=== PATIENT | female | born 1950 | race African-American/Black ===

== ENCOUNTER 2016-11-02 22:38 | Observation (INO) | payer MEDICARE, BC, OTHER ==
--- NOTE | ~2016-11-02 | HP ---
History And Physical [place] [id number] [facility] [place]. [address] NAME: CARIN MARQUEZ : 48 STATUS : ADM Mal PAT#: [id number] AGE: 66 ADM/REG DATE : 11/02/16 MR#: [id number] REPORT SERV DATE: 11/03/16 DICTATED BY: RACHEL GILLIAM DATE: 11/03/16 REPORT STATUS : Draft TRANSCRIBED BY: MODL DATE: 11/03/16 DATE OF ADMISSION: 11/02/2016 REASON FOR ADMISSION: Painful wound area to fistula. HISTORY OF PRESENT ILLNESS: This is a very pleasant 66-year-old female patient, who dialyzes on a Monday, Monday, Monday schedule via a right upper extremity fistula. She presents to [facility] with the request of her primary care for a painful wound area near her right upper extremity fistula. She dialyzes on Monday, Monday, and Monday at [place] [address] [facility] and has maintained her usual dialysis per schedule. Vascular Services have evaluated the patient this morning and finds that there is no direct correlation with her fistula access in regard to the wound and find no need for surgical intervention. The patient, however, does show redness and swelling to the area and it is quite painful for her. She states that she has continued to use the area for hemodialysis. She is awake, alert, and oriented. Denies current chest pain. No shortness of breath. No nausea, vomiting, or diarrhea. PAST MEDICAL HISTORY: Positive for end-stage renal disease, on Monday, Monday, and Monday hemodialysis at [place] [address] as listed above, via right upper extremity fistula, ischemic cardiomyopathy with ejection fraction of 20% to 25%, coronary artery disease with remote PCI to LAD, history of ventricular tachycardia, status post AICD, anemia, diabetes mellitus type 2, currently diet controlled; remote CVA; thrombocytopenia; congestive heart failure. PAST SURGICAL HISTORY: Positive for AICD, hysterectomy, , and PCI. FAMILY HISTORY: Noncontributory and not reviewed during this consultation and admission. ALLERGIES: SHE LISTS ALLERGIES TO MULTIPLE MEDICATIONS INCLUDING SULFA, CONTRAST, MORPHINE, SCOPOLAMINE, AMBIEN, ZEMPLAR, AND LATEX. ACTIVE MEDICATIONS: Include Tylenol 1000 mg daily p.r.n. b.i.d., ASA 81 mg daily, Keflex 500 mg p.o. b.i.d. x3 days with recent completion, Klonopin 0.5 mg p.o. t.i.d. p.r.n., Flonase one spray daily p.r.n. in both nostrils, [place] 10/325 tab p.o. t.i.d. for pain, Imdur 60 mg p.o. at bedtime, Lopressor 37.5 mg p.o. t.i.d., Mexitil 150 mg p.o. t.i.d., Nitrostat 0.4 mg p.o. p.r.n. for chest pain, Protonix 40 mg p.o. daily, Renvela 800 mg p.o. with meals, Travatan one drop oph at bedtime. REVIEW OF SYSTEMS: Completed. Please see HPI for pertinent details. PHYSICAL EXAMINATION: VITAL SIGNS: Blood pressure at 120/72, temperature 98.2, respiratory rate at 18, heart rate at 80 beats per minute and regular, and 99% on room air. GENERAL: She is awake, alert, and oriented x3, in no acute distress. Denies current nausea, vomiting, or diarrhea. No chest pain. HEENT: Normocephalic, atraumatic. Normal ocular movements. No scleral icterus. No History And Physical [address] [address] NAME: CARIN MARQUEZ : 48 STATUS : ADM Mal PAT#: [id number] AGE: 66 ADM/REG DATE : 11/02/16 MR#: [id number] REPORT SERV DATE: 11/03/16 DICTATED BY: RACHEL GILLIAM DATE: 11/03/16 REPORT STATUS : Draft TRANSCRIBED BY: FRANCISCO DATE: 11/03/16 conjunctival pallor is appreciated. NECK: Without thyromegaly. No JVD or mass. CHEST: Shows positive S1 and S2. No rubs or gallops. LUNGS: Diminished, but clear to auscultation throughout. Normal expansion and effort bilaterally. GI: Shows positive bowel sounds in all four quadrants. No appreciable mass or tenderness. : Deferred. EXTREMITIES: Show positive pulses to all four extremities. She does have a right upper extremity fistula with a swollen area in her right arm, which is painful to the touch, with wound noted, which is covered by a Band-Aid. NEUROLOGIC: She appears to be grossly intact. Nonfocal. SKIN: Warm, dry, and intact to visualized surfaces. No rash, lesions, or ecchymosis with exception of wound noted in her right upper extremity as above. PSYCHIATRIC: She is of appropriate mood and affect. LABORATORY DATA: Pertinent labs and imaging to this evaluation, sodium 143, potassium 3.9, chloride 103, CO2 of 29, BUN 29, creatinine 5.27, reflected GFR 9 mL/minutes, glucose of 92, calcium 8.3, albumin 3.5, alkaline phos 144. ALT 35, AST 47, lipase 410. White blood cell count 4.8, RBC 3.54, hemoglobin 11.7, hematocrit 36.7, and platelets 71. IMPRESSION AND PLAN: End-stage renal disease, on Monday, Monday, and Monday dialysis at [address], now presenting to [facility] with complaint of ongoing pain in right upper extremity with wound and edema. Evaluated this morning by Dr. Juarez Baron with no indication according to his note with direct involvement to her access with no need for surgical intervention with re-evaluation planned in two weeks at his office. Plans for local wound care. We will ultrasound the right upper extremity with unilateral edema and pain noted. We will not initiate heparin drip at this time with noted depressed platelets, which is a chronic condition for this patient. Ask evaluation from Wound Care. Plan for hemodialysis in the morning. Further modification of treatment plan may be made based on the clinical presentation, patient lab results, and further consultation with renal attending. We appreciate Vascular Services for assistance in evaluation with this patient. DICTATED BY: Edmond Chacon NP JR/FRANCISCO Rachel Gilliam M.D. / [id number] CC: Don Chang M.D.
[2016-11-02 20:29] LABS: BASOPHILS 0.4 %; BASOPHILS ABSOLUTE 0.02 10/3/uL (0.0-0.16); EOSINOPHILS 2.1 %; HEMATOCRIT 36.7 % (36.0-48.0); HEMOGLOBIN 11.7 g/dL (12.0-16.0); IMMATURE GRANULOCYTES 0.2 %; IMMATURE GRANULOCYTES ABSOLUTE 0.01 10/3/uL (0.0-0.11); LYMPHOCYTES 23.3 %; LYMPHOCYTES ABSOLUTE 1.11 10/3/uL (0.67-4.30); MANUAL DIFF NO %; MEAN CORPUS HGB CONC 31.9 g/dL (32.0-36.0); MEAN CORPUSCULAR HEMOGLOB 33.1 pg (26.0-34.0); MEAN CORPUSCULAR VOLUME 103.7 fL (80-100); MEAN PLATELET VOLUME 13.2 fL (9.2-13.0); MONOCYTES 17.4 %; MONOCYTES ABSOLUTE 0.83 10/3/uL (0.21-1.20); NEUTROPHILS 56.6 %; NEUTROPHILS ABSOLUTE 2.69 10/3/uL (2.02-8.40); PLATELET COUNT 71 10/3/uL (150-400); RBC DISTRIBUTION WIDTH 15.4 % (12.0-16.0); RED CELL COUNT 3.54 10/6/uL (4.0-5.6); WHITE BLOOD CELLS 4.8 10/3/uL (4.5-10.5)
[2016-11-02 20:32] LABS: ER CBC TAT 0 Hrs 16 Mins
[2016-11-02 20:44] LABS: A/G RATIO 0.9 (0.7-1.9); ALBUMIN 3.5 G/DL (3.5-5.0); ALKALINE PHOSPHATASE 144 U/L (45-117); BUN (BLOOD UREA NITROGEN) 29 MG/DL (6-23); CALCIUM, SERUM 8.3 MG/DL (8.5-10.4); CHLORIDE, SERUM 103 MMOL/L (96-112); CO2 (CARBON DIOXIDE) 29 MMOL/L (24-34); CREATININE 5.27 MG/DL (0.55-1.02); GFR AFRICAN AMERICAN 9 ML/MIN (>=60); GFR NON AFRICAN AMERICAN 8 ML/MIN (>=60); GLOBULIN 3.7 G/DL (2.5-4.1); GLUCOSE, SERUM 92 MG/DL (60-99); POTASSIUM, SERUM 3.9 MMOL/L (3.5-5.3); SGOT(AST) 47 U/L (5-40); SGPT(ALT) 35 U/L (5-65); SODIUM, SERUM 143 MMOL/L (135-148); TOTAL BILIRUBIN 0.8 MG/DL (0-1.2); TOTAL PROTEIN 7.2 G/DL (6.0-8.5)
[2016-11-02 21:34] LABS: PLATELET ESTIMATE DEC (ADEQUATE)
[2016-11-02 21:35] LABS: HYPOCHROMIA 1+ (3-10/OIF) (0-2/OIF)
[2016-11-02 21:36] LABS: POLYCHROMASIA 1+ (2-5/OIF) (0-1/OIF); TARGET CELLS OCC (1-2/OIF) (0-1/OIF)
[~2016-11-02 22:38] MED LIST: ACET500CAP PO; ASAB PO; ASABAYER PO; ATV1 PO; CEFT5 PO; CIP5 PO; COQ-1010 MG PO; FLONASE NAS; IMDUR30 PO; IMDUR60 PO; IODOSORB GEL; ISOSORB DIN30 MG PO; K500 PO; KLONO5 PO; LOP100 PO; LOP25 PO; LOP50 PO; LORT7 PO; MEXILETINE150 MG OR; MEXILETINE150 MG PO; MEXITIL 150 MG150 MG PO; NEUR100 PO; NIACIN 500 PO; NIACOR500 MG PO; NITROQUICK0.4 MG SL; NITROSTAT0.4 MG PO; NITROSTAT0.4 MG SL; NORCO1 TAB PO; NORV5 PO; NTG150 SL; PACERONE200 MG PO; PERCOCET1 TA2 PO; PERCOCET1 TA4 PO; PHOSLO PO; PLAVIX PO; PRAVACHOL40 MG PO; PROTONIX PO; RENVELA800 MG PO; SENSIPAR30 M1 PO; TRAVATAN OPH; TRAVATAN Z 0.004% OPH; TRAVATAN Z0.004 % OPH; VOL-CARE; XALAT OPH
[2016-11-03 15:42] LABS: BASOPHILS 0.6 %; BASOPHILS ABSOLUTE 0.03 10/3/uL (0.0-0.16); EOSINOPHILS 1.8 %; EOSINOPHILS ABSOLUTE 0.09 10/3/uL (0.0-0.53); HEMOGLOBIN 12.5 g/dL (12.0-16.0); IMMATURE GRANULOCYTES 0.4 %; IMMATURE GRANULOCYTES ABSOLUTE 0.02 10/3/uL (0.0-0.11); LYMPHOCYTES 29.5 %; LYMPHOCYTES ABSOLUTE 1.44 10/3/uL (0.67-4.30); MEAN CORPUS HGB CONC 32.1 g/dL (32.0-36.0); MEAN CORPUSCULAR HEMOGLOB 33.6 pg (26.0-34.0); MEAN CORPUSCULAR VOLUME 104.8 fL (80-100); MONOCYTES 13.9 %; MONOCYTES ABSOLUTE 0.68 10/3/uL (0.21-1.20); NEUTROPHILS 53.8 %; NEUTROPHILS ABSOLUTE 2.62 10/3/uL (2.02-8.40); PLATELET COUNT 81 10/3/uL (150-400); RBC DISTRIBUTION WIDTH 15.5 % (12.0-16.0); RED CELL COUNT 3.72 10/6/uL (4.0-5.6); WHITE BLOOD CELLS 4.9 10/3/uL (4.5-10.5)
[2016-11-03 15:44] LABS: MANUAL DIFF NO %
[2016-11-03 15:59] LABS: ALBUMIN 3.5 G/DL (3.5-5.0); CALCIUM, SERUM 8.1 MG/DL (8.5-10.4); CHLORIDE, SERUM 103 MMOL/L (96-112); CO2 (CARBON DIOXIDE) 29 MMOL/L (24-34); GLUCOSE, SERUM 80 MG/DL (60-99); POTASSIUM, SERUM 4.3 MMOL/L (3.5-5.3); SODIUM, SERUM 144 MMOL/L (135-148)
[2016-11-03 16:01] LABS: BUN (BLOOD UREA NITROGEN) 43 MG/DL (6-23); CREATININE 6.57 MG/DL (0.55-1.02); GFR AFRICAN AMERICAN 7 ML/MIN (>=60); GFR NON AFRICAN AMERICAN 6 ML/MIN (>=60); PHOSPHORUS, SERUM 4.8 MG/DL (2.5-4.5)
[2016-11-03 16:07] LABS: MACROCYTES 1+ (5-10/OIF) (0-5/OIF); PLATELET ESTIMATE DEC (ADEQUATE); TEARDROP SHAPED RBCS OCC (0-2/OIF)
[2016-11-04 07:07] LABS: BASOPHILS 0.4 %; BASOPHILS ABSOLUTE 0.02 10/3/uL (0.0-0.16); HEMATOCRIT 35.1 % (36.0-48.0); HEMOGLOBIN 11.7 g/dL (12.0-16.0); IMMATURE GRANULOCYTES 0.4 %; IMMATURE GRANULOCYTES ABSOLUTE 0.02 10/3/uL (0.0-0.11); LYMPHOCYTES 33.2 %; LYMPHOCYTES ABSOLUTE 1.69 10/3/uL (0.67-4.30); MEAN CORPUS HGB CONC 33.3 g/dL (32.0-36.0); MEAN CORPUSCULAR HEMOGLOB 33.6 pg (26.0-34.0); MEAN CORPUSCULAR VOLUME 100.9 fL (80-100); MEAN PLATELET VOLUME 12.5 fL (9.2-13.0); MONOCYTES 10.6 %; MONOCYTES ABSOLUTE 0.54 10/3/uL (0.21-1.20); NEUTROPHILS 53.4 %; NEUTROPHILS ABSOLUTE 2.72 10/3/uL (2.02-8.40); PLATELET COUNT 78 10/3/uL (150-400); RBC DISTRIBUTION WIDTH 15.5 % (12.0-16.0); RED CELL COUNT 3.48 10/6/uL (4.0-5.6); WHITE BLOOD CELLS 5.1 10/3/uL (4.5-10.5)
[2016-11-04 07:08] LABS: MANUAL DIFF NO %
[2016-11-04 07:15] LABS: ALBUMIN 3.4 G/DL (3.5-5.0); BUN (BLOOD UREA NITROGEN) 53 MG/DL (6-23); CHLORIDE, SERUM 103 MMOL/L (96-112); CO2 (CARBON DIOXIDE) 23 MMOL/L (24-34); CREATININE 7.53 MG/DL (0.55-1.02); GFR AFRICAN AMERICAN 6 ML/MIN (>=60); GFR NON AFRICAN AMERICAN 5 ML/MIN (>=60); GLUCOSE, SERUM 97 MG/DL (60-99); POTASSIUM, SERUM 4.2 MMOL/L (3.5-5.3); SODIUM, SERUM 141 MMOL/L (135-148)
[2016-11-04 08:59] LABS: HEPATITIS B SURFACE ANTIGEN NON-REACTIVE (NON-REACT)
[2016-11-04 09:26] LABS: HEPATITIS C ANTIBODY NON-REACTIVE (NON-REACT)
[2016-11-04 09:27] LABS: HEPATITIS B CORE AB IGM NON-REACTIVE (NON-REAC)
[2016-11-04 09:28] LABS: HEP A ANTIBODY IGM NON-REACTIVE (NON-REACT); HIV COMBO NON-REACTIVE (NON REAC)
[2016-11-04] MEDS ORDERED: NORCO1 TAB PO (15:01)
[2017-03-31] MEDS ORDERED: LOP25 PO (18:56)
[2017-03-31] MEDS ORDERED: MEXITIL 150 MG150 MG PO (18:56)
[2017-03-31] MEDS ORDERED: KLONO5 PO (18:57)
[2017-03-31] MEDS ORDERED: ASAB PO (18:57)
[2017-03-31] MEDS ORDERED: KLONOPIN WAF0.25 MG PO (18:57)
[2017-03-31] MEDS ORDERED: PERCOCET 7.5/321 TAB PO (18:57)
[2017-03-31] MEDS ORDERED: KEPPRA250 PO (18:57)
[2017-03-31] MEDS ORDERED: AMIT10 PO (18:58)
[2017-03-31] MEDS ORDERED: ACET500CAP PO (18:58)
[2017-03-31] MEDS ORDERED: PROTONIX PO (18:58)
[2017-03-31] MEDS ORDERED: SEVE800T PO (18:59)
[2017-03-31] MEDS ORDERED: TRAVATAN Z 0.004% OPH (18:59)
[2017-04-01] MEDS ORDERED: NITROQUICK0.4 MG SL (11:33)
[2017-04-01] MEDS ORDERED: NORV5 PO (11:41)
[2017-04-01] MEDS ORDERED: PLAVIX PO (11:41)
[2017-04-01] MEDS ORDERED: IMDUR60 PO (11:48)
[2017-04-01] MEDS ORDERED: FLONASE NAS (11:49)
[2017-04-01] MEDS ORDERED: CLARIT10 PO (11:49)
[2017-04-01] MEDS ORDERED: NEPHRO PO (11:50)
[2017-04-01] MEDS ORDERED: PRAVACHOL40 MG PO (11:51)
== END 2016-11-04 20:03 | disposition home or self-care (01) ==
LOC: ER 22:38 → 1SO 22:54
PROVIDERS: Emergency Medicine; Registered Nurse
DX: E11.22 Type 2 diabetes mellitus with diabetic chronic kidney disease (principal); I13.2 Hypertensive heart and chronic kidney disease with heart failure and with stage 5 chronic kidney disease, or end stage renal disease; N18.6 End stage renal disease; I50.9 Heart failure, unspecified; Z99.2 Dependence on renal dialysis; D69.6 Thrombocytopenia, unspecified; I25.5 Ischemic cardiomyopathy; I25.10 Atherosclerotic heart disease of native coronary artery without angina pectoris; M19.90 Unspecified osteoarthritis, unspecified site; F41.9 Anxiety disorder, unspecified; Z90.710 Acquired absence of both cervix and uterus; Z88.2 Allergy status to sulfonamides; Z88.6 Allergy status to analgesic agent; Z88.8 Allergy status to other drugs, medicaments and biological substances; Z91.040 Latex allergy status; Z86.73 Personal history of transient ischemic attack (TIA), and cerebral infarction without residual deficits; Z98.49 Cataract extraction status, unspecified eye; Z87.442 Personal history of urinary calculi; Z98.890 Other specified postprocedural states
CPT/HCPCS: 80053; 80069; 80074; 81001; 82962; 83690; 83735; 85025; 87389; 93971; 99284; A9270-GY; G0257; G0378

== ENCOUNTER 2016-12-04 20:05 | Emergency (ER) | payer MEDICARE, BC, OTHER ==
[2016-12-04 18:37] LABS: INTERNATIONAL NORMAL RATI 1.6 UNITS (-); PARTIAL THROMBO TIME 32.5 SEC (22.5-37.2)
[2016-12-04 18:46] LABS: PROTIME (NOT ORD) 18.5 SEC (12.0-14.5)
[2016-12-04 18:47] LABS: BUN (BLOOD UREA NITROGEN) 55 MG/DL (6-23); CALCIUM, SERUM 8.7 MG/DL (8.5-10.4); CHLORIDE, SERUM 99 MMOL/L (96-112); CO2 (CARBON DIOXIDE) 26 MMOL/L (24-34); CREATININE 8.04 MG/DL (0.55-1.02); ER CBC TAT 0 Hrs 15 Mins; GFR AFRICAN AMERICAN 5 ML/MIN (>=60); GFR NON AFRICAN AMERICAN 5 ML/MIN (>=60); GLUCOSE, SERUM 98 MG/DL (60-99); HEMATOCRIT 36.8 % (36.0-48.0); HEMOGLOBIN 11.9 g/dL (12.0-16.0); MANUAL DIFF YES %; MEAN CORPUS HGB CONC 32.3 g/dL (32.0-36.0); MEAN CORPUSCULAR HEMOGLOB 32.6 pg (26.0-34.0); MEAN CORPUSCULAR VOLUME 100.8 fL (80-100); NUCLEATED RED BLOOD CELLS 1.1 /100WBC (0-0); PLATELET COUNT 88 10/3/uL (150-400); POTASSIUM, SERUM 5.7 MMOL/L (3.5-5.3); RBC DISTRIBUTION WIDTH 14.3 % (12.0-16.0); RED CELL COUNT 3.65 10/6/uL (4.0-5.6); SODIUM, SERUM 135 MMOL/L (135-148)
[2016-12-04 18:49] LABS: CHEST PAIN PROFILE TAT 0 Hrs 23 Mins; TROPONIN I 0.13 NG/ML (<0.05)
[2016-12-04 19:10] LABS: EOSINOPHILS 2 %; EOSINOPHILS ABSOLUTE (CALC) 0.14 10/3/uL (0.0-0.53); ER DIFF TAT 0 Hrs 44 Mins; LYMPHOCYTES 25 %; LYMPHOCYTES ABSOLUTE (CALC) 1.75 10/3/uL (0.67-4.30); MONOCYTES 7 %; MONOCYTES ABSOLUTE (CALC) 0.49 10/3/uL (0.21-1.20); NEUTROPHILS ABSOLUTE (CALC) 4.62 10/3/uL (2.02-8.40); SEGMENTED NEUTROPHIL (0) 66 %; TOTAL NUCLEATED CELLS 100
[2016-12-04 19:11] LABS: MACROCYTES 1+ (5-10/OIF) (0-5/OIF)
[2016-12-04 19:12] LABS: BURR CELLS 1+ (3-10/OIF) (0-2/OIF); POLYCHROMASIA 1+ (2-5/OIF) (0-1/OIF); TEARDROP SHAPED RBCS FEW (3-10/OIF)
[2016-12-04 19:13] LABS: GIANT PLATELET RARE; PLATELET ESTIMATE DEC (ADEQUATE)
[2017-03-31] MEDS ORDERED: MEXITIL 150 MG150 MG PO (18:56)
[2017-03-31] MEDS ORDERED: LOP25 PO (18:56)
[2017-03-31] MEDS ORDERED: KEPPRA250 PO (18:57)
[2017-03-31] MEDS ORDERED: KLONO5 PO (18:57)
[2017-03-31] MEDS ORDERED: PERCOCET 7.5/321 TAB PO (18:57)
[2017-03-31] MEDS ORDERED: ASAB PO (18:57)
[2017-03-31] MEDS ORDERED: KLONOPIN WAF0.25 MG PO (18:57)
[2017-03-31] MEDS ORDERED: PROTONIX PO (18:58)
[2017-03-31] MEDS ORDERED: AMIT10 PO (18:58)
[2017-03-31] MEDS ORDERED: ACET500CAP PO (18:58)
[2017-03-31] MEDS ORDERED: SEVE800T PO (18:59)
[2017-03-31] MEDS ORDERED: TRAVATAN Z 0.004% OPH (18:59)
[2017-04-01] MEDS ORDERED: NITROQUICK0.4 MG SL (11:33)
[2017-04-01] MEDS ORDERED: NORV5 PO (11:41)
[2017-04-01] MEDS ORDERED: PLAVIX PO (11:41)
[2017-04-01] MEDS ORDERED: IMDUR60 PO (11:48)
[2017-04-01] MEDS ORDERED: CLARIT10 PO (11:49)
[2017-04-01] MEDS ORDERED: FLONASE NAS (11:49)
[2017-04-01] MEDS ORDERED: NEPHRO PO (11:50)
[2017-04-01] MEDS ORDERED: PRAVACHOL40 MG PO (11:51)
== END 2016-12-04 21:14 | disposition home or self-care (01) ==
LOC: ER 20:05
PROVIDERS: Emergency Medicine
DX: R07.9 Chest pain, unspecified (principal); R06.02 Shortness of breath; E87.6 Hypokalemia; I50.9 Heart failure, unspecified; E11.22 Type 2 diabetes mellitus with diabetic chronic kidney disease; N18.9 Chronic kidney disease, unspecified; Z86.73 Personal history of transient ischemic attack (TIA), and cerebral infarction without residual deficits; Z95.5 Presence of coronary angioplasty implant and graft; Z91.041 Radiographic dye allergy status; Z88.2 Allergy status to sulfonamides; Z88.5 Allergy status to narcotic agent; Z88.1 Allergy status to other antibiotic agents; Z91.040 Latex allergy status; Z79.82 Long term (current) use of aspirin; Z79.899 Other long term (current) drug therapy
CPT/HCPCS: 71010; 80048; 83735; 84484; 85025; 85610; 85730; 99285; A9270-GY

== ENCOUNTER 2016-12-18 20:30 | Observation (INO) | payer MEDICARE, BC, OTHER ==
--- NOTE | ~2016-12-18 | HP ---
History And Physical [facility] [address] [place]. [address] NAME: CARIN MARQUEZ : 48 STATUS : ADM Mal PAT#: [id number] AGE: 66 ADM/REG DATE : 12/18/16 MR#: [id number] REPORT SERV DATE: 12/19/16 DICTATED BY: DATE: REPORT STATUS : Draft TRANSCRIBED BY: MODL DATE: 12/19/16 DATE OF ADMISSION: 12/18/2016 CHIEF COMPLAINT: Bleeding from right upper arm AV fistula. HISTORY OF PRESENT ILLNESS: Ms. Marquez is a 66-year-old black female with end-stage renal disease, dialyzes on [address] Monday, Monday, Monday. She presented to the emergency department yesterday evening late with bleeding from her AV fistula. She does not know the duration of bleeding, states she was asleep when it started, it had stopped before her arrival here to the emergency department. It is of note that, she was just here in October with issues regarding the fistula, had a painful area around it, she follows with Dr. Hall. No fevers, chills. No shortness of breath, chest pain, tightness, or pressure, or other symptoms. No issues with dialysis on Monday and no bleeding on Monday. PAST MEDICAL HISTORY: End-stage renal disease, ischemic cardiomyopathy with EF of 20% to 25%, coronary artery disease with a history of PCI. She has a history of ventricular tachycardia with AICD, anemia, diabetes type 2, history of CVA, thrombocytopenia, and congestive heart failure. SURGICAL HISTORY: Hysterectomy, , PCI, and AICD. FAMILY MEDICAL HISTORY: No end-stage renal disease. ALLERGIES: SULFA, CONTRAST, MORPHINE, SCOPOLAMINE, AMBIEN, ZEMPLAR, LATEX. SOCIAL HISTORY: No tobacco, alcohol, or illicit drug use. Lives with family. MEDICATIONS: Acetaminophen, aspirin, calcium carbonate, Klonopin, Renvela, eyedrops, Flonase, [place], Imdur, Keppra, Lopressor, mexiletine, nitroglycerin, and Protonix. REVIEW OF SYSTEMS: 12-point review of systems obtained and negative with the exception of that in HPI. PHYSICAL EXAMINATION: VITAL SIGNS: Temp 97.6, blood pressure 113/66, pulse 81, respiratory rate 12, O2 saturation is 99%. GENERAL: This is a pleasant, cooperative, black female. She is awake, alert, and oriented x3. No acute distress. Answers questions appropriately. HEENT: Normocephalic, atraumatic. Conjunctivae clear. Sclerae anicteric. Oral mucosa is moist. NECK: Supple. Carotids are brisk. Neck veins flat. No lymphadenopathy. RESPIRATIONS: Even and unlabored. Breath sounds clear to auscultation. HEART: Rate is regular. She has a 2/6 systolic ejection murmur. No rub or gallop. ABDOMEN: Obese, soft, nontender. Bowel sounds active. No masses. No hepatosplenomegaly. No bruits. No CVA tenderness. BACK: Within normal limits. History And Physical [address] [place]. [address] NAME: CARIN MARQUEZ : 48 STATUS : ADM Mal PAT#: [id number] AGE: 66 ADM/REG DATE : 12/18/16 MR#: [id number] REPORT SERV DATE: 12/19/16 DICTATED BY: DATE: REPORT STATUS : Draft TRANSCRIBED BY: MODL DATE: 12/19/16 EXTREMITIES: No edema, cyanosis, clubbing to the right upper arm AV fistula and there was no active bleeding. Dressing is dry and intact and right hand warm and positive radial pulse. NEURO: No focal deficits. Mood and affect, pleasant and appropriate. PERTINENT LABS AND X-RAYS: WBCs 5.6, H and H 10 and 33, platelets 85,000. Sodium 139, potassium 5.2, chloride 106, CO2 of 27, BUN of 62, creatinine of 7.2, calcium 8.8, magnesium 1.9. Phosphorus 1.7. Troponin 0.04. IMPRESSION: 1. Bleeding from AV fistula. 2. End-stage renal disease. 3. Hypertension. 4. Ischemic cardiomyopathy with EF of 20% to 25%. 5. Coronary artery disease, status post PCI, distant. 6. History of ventricular tachycardia with positive AICD. 7. Chronic thrombocytopenia. 8. Anemia. 9. History of congestive heart failure. PLAN: She is going to be admitted to observation, vascular surgery consult placed. Dr. Hall has already made plans for fistulogram today at 11 o'clock. We will plan for dialysis afterwards if she is stable, next likely we will discharge home. MARIA C/FRANCISCO LIGIA Parra / [id number] CC: Jose Elias Gregory M.D.
--- NOTE | ~2016-12-18 | OP ---
Record Of Operation [facility] [address] [place]. [address] NAME: CARIN MARQUEZ : 48 STATUS : ADM Mal PAT#: [id number] AGE: 66 ADM/REG DATE : 12/18/16 MR#: [id number] REPORT SERV DATE: 12/19/16 DICTATED BY: GREGOR HALL DATE: 12/19/16 REPORT STATUS : Draft TRANSCRIBED BY: MODL DATE: 12/19/16 DATE OF PROCEDURE: 12/19/2016 PREOPERATIVE DIAGNOSIS: Prolonged bleeding from right upper extremity arteriovenous fistula. POSTOPERATIVE DIAGNOSES: 1. Prolonged bleeding from right upper extremity arteriovenous fistula. 2. Arteriovenous fistula and central venous stenosis. PROCEDURES: 1. Right upper extremity fistulogram. 2. Percutaneous angioplasty of the arteriovenous fistula and the right innominate vein. SURGEON: Gregor Hall M.D. PET TRAINING INSTRUCTOR: None. ANESTHESIA: MAC plus local. INDICATIONS: The patient is a 66-year-old female who presented with prolonged bleeding from her fistula. I talked to her about the risks, benefits, and alternatives of a fistulogram with possible intervention. She agreed to proceed. DESCRIPTION OF PROCEDURE: After informed consent was obtained, the patient was taken to the operating room and placed in the supine position on the operating table. Monitored anesthesia was administered. The patient's right upper extremity was prepped and draped in the usual sterile fashion. An ultrasound-guided access was obtained of the AV fistula in an antegrade fashion. I obtained a fistulogram that demonstrated that there was an intervening segment of fistula with a graft present also. There were couple of areas of stenosis within the fistula/graft. There was a patent stent. There was a right innominate vein stenosis. I placed a 7-Angolan sheath and angioplastied the fistula and graft with a 7-mm balloon. There was some improvement, but some residual area of stenosis more centrally. I angioplastied the fistula and graft with a 12 mm balloon as well as the right innominate vein with a 12 mm balloon. Imaging obtained afterwards showed a great result. Thus, I withdrew my wire, catheter, and sheath and placed a stitch for hemostasis. The patient tolerated the procedure well without any intraprocedural complications noted. BIOSOLIDS MANAGEMENT TECHNICIAN/FRANCISCO Gregor Hall M.D. / [id number] Record Of Operation [place] [id number] [place] [address] NAME: CARIN MARQUEZ : 49 STATUS : ADM Mal PAT#: [id number] AGE: 66 ADM/REG DATE : 12/18/16 MR#: [id number] REPORT SERV DATE: 12/19/16 DICTATED BY: GREGOR HALL DATE: 12/19/16 REPORT STATUS : Draft TRANSCRIBED BY: FRACNISCO DATE: 12/19/16 CC: Jose Elias Gregory M.D.
--- NOTE | ~2016-12-18 | CN ---
Consultation Report [facility] [address] [place]. [address] NAME: CARIN MARQUEZ : 48 STATUS : DIS Mal PAT#: [id number] AGE: 66 ADM/REG DATE : 12/18/16 MR#: [id number] REPORT SERV DATE: 12/20/16 DICTATED BY: GREGOR HALL DATE: 12/20/16 REPORT STATUS : Draft TRANSCRIBED BY: FRANCISCO DATE: 12/20/16 CONSULTATION DATE OF CONSULTATION: 12/19/2016 REASON FOR CONSULTATION: Evaluation for poorly functioning left upper extremity AV fistula. BRIEF HISTORY: The patient is a 66-year-old female with past medical history significant for end-stage renal disease, ischemic cardiomyopathy, coronary artery disease, diabetes, stroke, thrombocytopenia, and congestive heart failure, who came to the hospital after sudden onset of bleeding two days after dialysis. Apparently, this occurred when she was sleeping and there was a copious amount of blood. By the time she showed up to the ER, the bleeding had stopped, but there was some question as to whether she had an erosion of her fistula also. Given these circumstances, she was admitted to the hospital under Dr. Gregory. I was consulted for evaluation and treatment. The patient denies any issues with high venous pressures or prolonged bleeding beforehand. She has not had any problems with edema or problems clearing her potassium. PAST MEDICAL HISTORY: As above. SURGICAL HISTORY: Includes hysterectomy, , multiple dialysis access procedures, coronary intervention, and AICD placement. FAMILY HISTORY: Noncontributory. ALLERGIES: NUMEROUS AND ARE DOCUMENTED ON THE CHART. I REVIEWED THEM AND IT TURNS OUT THAT SHE DOES NOT ACTUALLY HAVE A TRUE ALLERGIC REACTION TO CONTRAST. SOCIAL HISTORY: She denies any tobacco, alcohol, or drug use. MEDICATIONS: Her medications are documented on the chart and were reviewed. REVIEW OF SYSTEMS: A complete review of systems was performed and is negative with the exception of the aforementioned findings. PHYSICAL EXAMINATION: VITAL SIGNS: Documented on the chart and were reviewed. GENERAL: The patient is awake, alert, and oriented, in no apparent distress. HEAD AND NECK: Benign without any carotid bruits. HEART: Regular rate and rhythm. LUNGS: Clear. ABDOMEN: Soft, nontender, nondistended with a nonaneurysmal aorta. She has a normal complement of upper extremity pulses without any significant edema or ischemic ulcerations. Consultation Report [facility] [address] [facility] [address] NAME: CARIN MARQUEZ : 48 STATUS : DIS Mal PAT#: [id number] AGE: 66 ADM/REG DATE : 12/18/16 MR#: [id number] REPORT SERV DATE: 12/20/16 DICTATED BY: GREGOR HALL DATE: 12/20/16 REPORT STATUS : Draft TRANSCRIBED BY: MODElina DATE: 12/20/16 She does have some scarring overlying her fistula or graft. It looks like she has some pseudoaneurysms present. It feels like some of this region has a graft in place, but some of it feels like a fistula. She has no prolonged bleeding right now. It looks like it has stopped. NEUROLOGICAL: Nonfocal. MUSCULOSKELETAL: Reveals no flexion contractures. LABORATORY DATA: Her laboratory investigations are consistent with her renal failure. ASSESSMENT AND PLAN: Looks like this very ill lady has prolonged bleeding from her fistula/graft. I talked to her about the risks, benefits, and alternatives of a fistulogram with possible intervention. She seems agreeable. We are going to get this scheduled. FREDI/FRANCISCO Gregor Hall M.D. / [id number] CC: Jose Elias Gregory M.D.
[2016-12-18 18:52] LABS: BASOPHILS 0.4 %; BASOPHILS ABSOLUTE 0.02 10/3/uL (0.0-0.16); EOSINOPHILS 3.5 %; HEMATOCRIT 33.8 % (36.0-48.0); HEMOGLOBIN 10.7 g/dL (12.0-16.0); IMMATURE GRANULOCYTES 0.2 %; IMMATURE GRANULOCYTES ABSOLUTE 0.01 10/3/uL (0.0-0.11); LYMPHOCYTES 34.2 %; LYMPHOCYTES ABSOLUTE 1.93 10/3/uL (0.67-4.30); MEAN CORPUS HGB CONC 31.7 g/dL (32.0-36.0); MEAN CORPUSCULAR HEMOGLOB 33.4 pg (26.0-34.0); MEAN PLATELET VOLUME 12.6 fL (9.2-13.0); MONOCYTES 15.1 %; MONOCYTES ABSOLUTE 0.85 10/3/uL (0.21-1.20); NEUTROPHILS 46.6 %; NEUTROPHILS ABSOLUTE 2.63 10/3/uL (2.02-8.40); PLATELET COUNT 85 10/3/uL (150-400); RBC DISTRIBUTION WIDTH 15.1 % (12.0-16.0); WHITE BLOOD CELLS 5.6 10/3/uL (4.5-10.5)
[2016-12-18 18:54] LABS: MANUAL DIFF NO %; MEAN CORPUSCULAR VOLUME 105.6 fL (80-100)
[2016-12-18 19:00] LABS: INTERNATIONAL NORMAL RATI 1.2 UNITS (-); PARTIAL THROMBO TIME 29.2 SEC (22.5-37.2); PROTIME (NOT ORD) 14.8 SEC (12.0-14.5)
[2016-12-18 19:08] LABS: CALCIUM, SERUM 8.8 MG/DL (8.5-10.4); CHEST PAIN PROFILE TAT 0 Hrs 20 Mins; CHLORIDE, SERUM 106 MMOL/L (96-112); CO2 (CARBON DIOXIDE) 27 MMOL/L (24-34); POTASSIUM, SERUM 5.2 MMOL/L (3.5-5.3); SODIUM, SERUM 139 MMOL/L (135-148); TROPONIN I 0.04 NG/ML (<0.05)
[2016-12-18 19:09] LABS: BUN (BLOOD UREA NITROGEN) 62 MG/DL (6-23); CREATININE 7.26 MG/DL (0.55-1.02); GFR AFRICAN AMERICAN 6 ML/MIN (>=60); GFR NON AFRICAN AMERICAN 5 ML/MIN (>=60); GLUCOSE, SERUM 75 MG/DL (60-99)
[2016-12-18] MEDS ORDERED: KEPPRA500 PO (21:24)
[2016-12-18] MEDS ORDERED: KLONO5 PO ×2 (21:27)
[2016-12-18] MEDS ORDERED: TUMSROLL PO ×2 (21:27)
[2016-12-19 00:28] LABS: ALBUMIN 3.3 G/DL (3.5-5.0)
[2016-12-19 00:29] LABS: PHOSPHORUS, SERUM 1.7 MG/DL (2.5-4.5)
[2017-03-31] MEDS ORDERED: LOP25 PO (18:56)
[2017-03-31] MEDS ORDERED: MEXITIL 150 MG150 MG PO (18:56)
[2017-03-31] MEDS ORDERED: KLONOPIN WAF0.25 MG PO (18:57)
[2017-03-31] MEDS ORDERED: PERCOCET 7.5/321 TAB PO (18:57)
[2017-03-31] MEDS ORDERED: KEPPRA250 PO (18:57)
[2017-03-31] MEDS ORDERED: ASAB PO (18:57)
[2017-03-31] MEDS ORDERED: KLONO5 PO (18:57)
[2017-03-31] MEDS ORDERED: PROTONIX PO (18:58)
[2017-03-31] MEDS ORDERED: AMIT10 PO (18:58)
[2017-03-31] MEDS ORDERED: ACET500CAP PO (18:58)
[2017-03-31] MEDS ORDERED: SEVE800T PO (18:59)
[2017-03-31] MEDS ORDERED: TRAVATAN Z 0.004% OPH (18:59)
[2017-04-01] MEDS ORDERED: NITROQUICK0.4 MG SL (11:33)
[2017-04-01] MEDS ORDERED: NORV5 PO (11:41)
[2017-04-01] MEDS ORDERED: PLAVIX PO (11:41)
[2017-04-01] MEDS ORDERED: IMDUR60 PO (11:48)
[2017-04-01] MEDS ORDERED: FLONASE NAS (11:49)
[2017-04-01] MEDS ORDERED: CLARIT10 PO (11:49)
[2017-04-01] MEDS ORDERED: NEPHRO PO (11:50)
[2017-04-01] MEDS ORDERED: PRAVACHOL40 MG PO (11:51)
== END 2016-12-19 22:07 | disposition home or self-care (01) ==
LOC: ER 20:30 → CDU1 21:31 → CDU2 21:45
PROVIDERS: Emergency Medicine
PROC: 05733ZZ Dilation of Right Innominate Vein, Percutaneous Approach (ICD-10-PCS; principal; 2016-12-18)
DX: T82.838A Hemorrhage due to vascular prosthetic devices, implants and grafts, initial encounter (principal); I25.10 Atherosclerotic heart disease of native coronary artery without angina pectoris; D64.9 Anemia, unspecified; E11.22 Type 2 diabetes mellitus with diabetic chronic kidney disease; D69.6 Thrombocytopenia, unspecified; I50.9 Heart failure, unspecified; N18.6 End stage renal disease; I13.2 Hypertensive heart and chronic kidney disease with heart failure and with stage 5 chronic kidney disease, or end stage renal disease; Z86.73 Personal history of transient ischemic attack (TIA), and cerebral infarction without residual deficits; Z98.890 Other specified postprocedural states; Z90.710 Acquired absence of both cervix and uterus; Z88.5 Allergy status to narcotic agent; Z88.8 Allergy status to other drugs, medicaments and biological substances; Z88.2 Allergy status to sulfonamides; Z91.040 Latex allergy status; Z79.82 Long term (current) use of aspirin; Z79.899 Other long term (current) drug therapy; Z79.891 Long term (current) use of opiate analgesic
CPT/HCPCS: 36902; 80048; 80069; 83735; 84484; 85025; 85610; 85730; 99285; A9270-GY; C1725; C1769; C1894; G0257; G0378; J0690; J2250; J2370; J3010; Q9967

== ENCOUNTER 2016-12-28 09:43 | Emergency (ER) | payer MEDICARE, BC, OTHER ==
[~2016-12-28 09:43] MED LIST changes: +KEPPRA500 PO; +TUMSROLL PO
[2017-03-31] MEDS ORDERED: LOP25 PO (18:56)
[2017-03-31] MEDS ORDERED: MEXITIL 150 MG150 MG PO (18:56)
[2017-03-31] MEDS ORDERED: KEPPRA250 PO (18:57)
[2017-03-31] MEDS ORDERED: KLONO5 PO (18:57)
[2017-03-31] MEDS ORDERED: PERCOCET 7.5/321 TAB PO (18:57)
[2017-03-31] MEDS ORDERED: ASAB PO (18:57)
[2017-03-31] MEDS ORDERED: KLONOPIN WAF0.25 MG PO (18:57)
[2017-03-31] MEDS ORDERED: ACET500CAP PO (18:58)
[2017-03-31] MEDS ORDERED: AMIT10 PO (18:58)
[2017-03-31] MEDS ORDERED: PROTONIX PO (18:58)
[2017-03-31] MEDS ORDERED: SEVE800T PO (18:59)
[2017-03-31] MEDS ORDERED: TRAVATAN Z 0.004% OPH (18:59)
[2017-04-01] MEDS ORDERED: NITROQUICK0.4 MG SL (11:33)
[2017-04-01] MEDS ORDERED: NORV5 PO (11:41)
[2017-04-01] MEDS ORDERED: PLAVIX PO (11:41)
[2017-04-01] MEDS ORDERED: IMDUR60 PO (11:48)
[2017-04-01] MEDS ORDERED: CLARIT10 PO (11:49)
[2017-04-01] MEDS ORDERED: FLONASE NAS (11:49)
[2017-04-01] MEDS ORDERED: NEPHRO PO (11:50)
[2017-04-01] MEDS ORDERED: PRAVACHOL40 MG PO (11:51)
== END 2016-12-28 11:00 | disposition home or self-care (01) ==
LOC: ER 09:43
DX: T82.838A Hemorrhage due to vascular prosthetic devices, implants and grafts, initial encounter (principal); I50.9 Heart failure, unspecified; I25.2 Old myocardial infarction; E11.9 Type 2 diabetes mellitus without complications; D64.9 Anemia, unspecified; Z91.041 Radiographic dye allergy status; Z88.5 Allergy status to narcotic agent; Z88.1 Allergy status to other antibiotic agents; Z88.2 Allergy status to sulfonamides; Z88.8 Allergy status to other drugs, medicaments and biological substances; Z91.040 Latex allergy status; Z79.82 Long term (current) use of aspirin; Z79.899 Other long term (current) drug therapy; Z86.73 Personal history of transient ischemic attack (TIA), and cerebral infarction without residual deficits
CPT/HCPCS: 99283

== ENCOUNTER 2017-01-03 12:32 | Emergency (ER) | payer MEDICARE, BC, OTHER ==
[2017-03-31] MEDS ORDERED: MEXITIL 150 MG150 MG PO (18:56)
[2017-03-31] MEDS ORDERED: LOP25 PO (18:56)
[2017-03-31] MEDS ORDERED: KEPPRA250 PO (18:57)
[2017-03-31] MEDS ORDERED: KLONOPIN WAF0.25 MG PO (18:57)
[2017-03-31] MEDS ORDERED: PERCOCET 7.5/321 TAB PO (18:57)
[2017-03-31] MEDS ORDERED: KLONO5 PO (18:57)
[2017-03-31] MEDS ORDERED: ASAB PO (18:57)
[2017-03-31] MEDS ORDERED: ACET500CAP PO (18:58)
[2017-03-31] MEDS ORDERED: AMIT10 PO (18:58)
[2017-03-31] MEDS ORDERED: PROTONIX PO (18:58)
[2017-03-31] MEDS ORDERED: SEVE800T PO (18:59)
[2017-03-31] MEDS ORDERED: TRAVATAN Z 0.004% OPH (18:59)
[2017-04-01] MEDS ORDERED: NITROQUICK0.4 MG SL (11:33)
[2017-04-01] MEDS ORDERED: PLAVIX PO (11:41)
[2017-04-01] MEDS ORDERED: NORV5 PO (11:41)
[2017-04-01] MEDS ORDERED: IMDUR60 PO (11:48)
[2017-04-01] MEDS ORDERED: FLONASE NAS (11:49)
[2017-04-01] MEDS ORDERED: CLARIT10 PO (11:49)
[2017-04-01] MEDS ORDERED: NEPHRO PO (11:50)
[2017-04-01] MEDS ORDERED: PRAVACHOL40 MG PO (11:51)
== END 2017-01-03 14:17 | disposition home or self-care (01) ==
LOC: ER 12:32
DX: S09.90XA Unspecified injury of head, initial encounter (principal); S89.92XA Unspecified injury of left lower leg, initial encounter; S80.211A Abrasion, right knee, initial encounter; I50.9 Heart failure, unspecified; E11.9 Type 2 diabetes mellitus without complications; D64.9 Anemia, unspecified; Z86.73 Personal history of transient ischemic attack (TIA), and cerebral infarction without residual deficits; Z91.041 Radiographic dye allergy status; Z88.2 Allergy status to sulfonamides; Z88.5 Allergy status to narcotic agent; Z88.1 Allergy status to other antibiotic agents; Z91.040 Latex allergy status; Z79.82 Long term (current) use of aspirin; Z79.899 Other long term (current) drug therapy; W19.XXXA Unspecified fall, initial encounter
CPT/HCPCS: 70450; 73560-50; 99284

== ENCOUNTER 2017-01-22 05:09 | Observation (INO) | payer MEDICARE, BC, OTHER ==
--- NOTE | ~2017-01-22 | OP ---
Record Of Operation [facility] [address] [place]. [address] NAME: CARIN MARQUEZ : 48 STATUS : ADM Mal PAT#: [id number] AGE: 66 ADM/REG DATE : 01/22/17 MR#: [id number] REPORT SERV DATE: 01/23/17 DICTATED BY: GREGOR HALL DATE: 01/23/17 REPORT STATUS : Draft TRANSCRIBED BY: MODElina DATE: 01/23/17 DATE OF PROCEDURE: 01/23/2017 PREOPERATIVE DIAGNOSIS: Prolonged bleeding from right upper extremity arteriovenous fistula. POSTOPERATIVE DIAGNOSIS: Prolonged bleeding from right upper extremity arteriovenous fistula. PROCEDURE: 1. Right upper extremity fistulogram. 2. Percutaneous angioplasty of the right innominate vein using a 14 mm high-pressure balloon. RAD TECHNOLOGIST: None. ANESTHESIA: LMA. INDICATIONS: The patient is a 66-year-old female with a history of end-stage renal disease who is dialyzed via a left upper extremity arteriovenous fistula/graft. She recently had an angioplasty for prolonged bleeding and she returns with another episode of prolonged bleeding. Thus, she was consented for angiography with possible intervention. DESCRIPTION OF PROCEDURE: After informed consent was obtained, the patient was taken to the operating room and placed in the supine position on the operating table. An LMA was introduced and general anesthesia was administered. The patient's right upper extremity was prepped and draped in usual sterile fashion. Ultrasound-guided access was obtained of the right upper extremity AV graft in an antegrade fashion. I placed a micropuncture sheath and obtained an angiogram that demonstrated no stenosis of the graft, intervening segment of the fistula, stent, or central veins up until the right innominate vein. There, there was a stenosis present. It was about 50%. I placed a wire there and angioplastied it with a 14 mm balloon. Imaging obtained afterwards showed a great result. There was no other stenosis identified on multiple views. Thus, I withdrew my sheath and placed a stitch for hemostasis. The patient tolerated the procedure well without any intraprocedural complications noted. BELT BACK OPERATOR/FRANCISCO Gregor Hall M.D. / [id number] CC: Tate Hussein M.D.
--- NOTE | ~2017-01-22 | HP ---
History And Physical [facility] [address] [place]. [address] NAME: CARIN MARQUEZ : 48 STATUS : ADM Mal PAT#: [id number] AGE: 66 ADM/REG DATE : 01/22/17 MR#: [id number] REPORT SERV DATE: 01/22/17 DICTATED BY: DATE: REPORT STATUS : Draft TRANSCRIBED BY: MODL DATE: 01/22/17 DATE OF ADMISSION: 01/22/2017 CHIEF COMPLAINT: Bleeding from right AV fistula. HISTORY OF PRESENT ILLNESS: Ms. Marquez is a 66-year-old black female, who dialyzes on Monday, Monday[facility]. She has had multiple admissions for bleeding from AV fistula. I think this is the fifth. Her last fistulogram was in 12/19/2016. She states that she had a little bit of bleeding post dialysis on Monday that was stopped and then yesterday evening while in bed, she started bleeding again, noticed blood on the floor, therefore presented to the emergency department. No fevers, chills. No shortness of breath. No chest pain, tightness, or pressure. No drainage or ulcerations to the AV fistula. Hemoglobin is stable at 11.7. PAST MEDICAL HISTORY: End-stage renal disease, ischemic cardiomyopathy with EF of 25% to 25%, history of ventricular tachycardia with an AICD, type 2 diabetes, coronary artery disease, history of PCI, CVA, chronic thrombocytopenia, chronic systolic CHF. She has had hysterectomy, , and multiple fistulogram. SOCIAL HISTORY: She lives alone. No tobacco, alcohol, or illicit drug use. ALLERGIES: SULFA, CONTRAST, MORPHINE, SCOPOLAMINE, AMBIEN, ZEMPLAR. MEDICATIONS: At home, acetaminophen, aspirin, calcium carbonate, Klonopin, Flonase, hydrocodone, Imdur, Keppra, metoprolol, Mexitil, nitroglycerin, Protonix, Renvela, and Travatan. REVIEW OF SYSTEMS: 12-point review of systems obtained and negative with the exception that in HPI. PHYSICAL EXAMINATION: VITAL SIGNS: Temp 97.6, blood pressure 159/72, pulse 80, respiratory rate 17, O2 saturation is 100%. GENERAL: This is a pleasant, cooperative, black female. She is awake, alert, oriented, and in no acute distress. Answers questions appropriately. HEENT: Normocephalic, atraumatic. Conjunctivae clear. Sclerae anicteric. Pupils are equal and round. Oral mucosa is dry. NECK: Supple, thick. I did not see any neck vein distention. No lymphadenopathy. RESPIRATIONS: Even and unlabored. Breath sounds clear to auscultation. HEART: Rate is regular. No murmur, rub, or gallop. ABDOMEN: Obese, soft, nontender. Bowel sounds active. No masses or hepatosplenomegaly. No bruits. No CVA tenderness. BACK: Within normal limits. EXTREMITIES: To the right upper extremity, she has an AV fistula. To the upper arm, it has a few scabbed-over area, it has only Band-Aids holding without any bleeding noted. There are no signs of infection. No erythema. No fluctuation. No induration. No surrounding History And Physical [address] [address] NAME: CARIN MARQUEZ : 48 STATUS : ADM Mal PAT#: [id number] AGE: 66 ADM/REG DATE : 01/22/17 MR#: [id number] REPORT SERV DATE: 01/22/17 DICTATED BY: DATE: REPORT STATUS : Draft TRANSCRIBED BY: MODL DATE: 01/22/17 erythema. Lower extremities, no significant edema. SKIN: No unusual rash or skin lesions. NEURO: No focal deficits. Mood and affect, she is somewhat anxious, but appropriate. PERTINENT LABORATORIES AND X-RAYS: WBCs 5.2, H and H 11 and 36, platelets 86,000. IMPRESSION: 1. Bleeding from AV fistula to the right. 2. End-stage renal disease. 3. Ischemic cardiomyopathy. 4. Type 2 diabetes. 5. Coronary artery disease, status post PCI. 6. History of systolic heart failure. 7. Chronic thrombocytopenia. PLAN: Admit, vascular surgery consult has already been placed. Monitor for further bleeding. Dialysis tomorrow post fistulogram of that is warranted per Dr. Hall's recommendations. Further orders and recommendations pending clinical course. MARIA C/FRANCISCO LIGIA Parra / [id number] CC: Tate Hussein M.D.
--- NOTE | ~2017-01-22 | CN ---
Consultation Report [facility] [address] [place]. [address] NAME: CARIN MARQUEZ : 48 STATUS : ADM Mal PAT#: [id number] AGE: 66 ADM/REG DATE : 01/22/17 MR#: [id number] REPORT SERV DATE: 01/22/17 DICTATED BY: GREGOR HALL DATE: 01/22/17 REPORT STATUS : Draft TRANSCRIBED BY: MODElina DATE: 01/22/17 DATE OF CONSULTATION: 01/22/2017 REASON FOR CONSULTATION: Evaluation for prolonged bleeding from a right upper extremity AV graft. BRIEF HISTORY: The patient is a 66-year-old female with a past medical history significant for end-stage renal disease, ischemic cardiomyopathy, coronary artery disease, diabetes, stroke, thrombocytopenia, and congestive heart failure, who came to the hospital with her fourth episode of bleeding from her right upper extremity. I performed a fistulogram just over a month ago and intervened on several areas of stenosis within the fistula as well as a central lesion. Her bleeding improved, but she has now showed up with recurrent bleeding. She denies any aggravating or alleviating factors. PAST MEDICAL HISTORY: As above. PAST SURGICAL HISTORY: Hysterectomy, , multiple dialysis access procedures, coronary intervention, and AICD placement. FAMILY HISTORY: Noncontributory. ALLERGIES: NUMEROUS AND ARE DOCUMENTED ON THE CHART. SHE HAS A LISTED ALLERGIC REACTION TO CONTRAST BUT IT TURNS OUT THAT SHE DOES NOT ACTUALLY HAVE A TRUE ALLERGY. SOCIAL HISTORY: She denies tobacco, alcohol, or drug use. MEDICATIONS: Documented on the chart and were reviewed. REVIEW OF SYSTEMS: A complete review of systems was performed and is negative with the exception of the aforementioned findings. PHYSICAL EXAMINATION: VITAL SIGNS: Documented on the chart and were reviewed. GENERAL: The patient is awake, alert, and oriented, in no apparent distress. HEAD AND NECK: Benign without any carotid bruits. HEART: Regular rate and rhythm. LUNGS: Clear. ABDOMEN: Soft, nontender, nondistended with a nonaneurysmal aorta. She has a normal complement of upper extremity pulses without any significant edema or ischemic ulcerations. Her fistula/graft has a good thrill within it. NEUROLOGICAL: Her neurological examination is nonfocal. MUSCULOSKELETAL: Her musculoskeletal examination is otherwise benign. ASSESSMENT AND PLAN: It looks like this lady has recurrent prolonged bleeding from her right Consultation Report [facility] [address] [place]. [id number] NAME: CARIN MARQUEZ : 48 STATUS : ADM Mal PAT#: [id number] AGE: 66 ADM/REG DATE : 01/22/17 MR#: [id number] REPORT SERV DATE: 01/22/17 DICTATED BY: GREGOR HALL DATE: 01/22/17 REPORT STATUS : Draft TRANSCRIBED BY: MODL DATE: 01/22/17 upper extremity AV fistula/graft. I am going to plan on a fistulogram with possible intervention. Risks, benefits, and alternatives were discussed. She agrees to proceed. I will get this scheduled for tomorrow. FREDI/FRANCISCO Gregor Hall M.D. / [id number] CC: Tate Hussein M.D.
[2017-01-22 01:56] LABS: BASOPHILS 0.2 %; BASOPHILS ABSOLUTE 0.01 10/3/uL (0.0-0.16); EOSINOPHILS 3.3 %; EOSINOPHILS ABSOLUTE 0.17 10/3/uL (0.0-0.53); HEMATOCRIT 36.2 % (36.0-48.0); HEMOGLOBIN 11.7 g/dL (12.0-16.0); IMMATURE GRANULOCYTES 0.2 %; LYMPHOCYTES 35.9 %; LYMPHOCYTES ABSOLUTE 1.85 10/3/uL (0.67-4.30); MEAN CORPUS HGB CONC 32.3 g/dL (32.0-36.0); MEAN CORPUSCULAR HEMOGLOB 33.1 pg (26.0-34.0); MEAN CORPUSCULAR VOLUME 102.3 fL (80-100); MEAN PLATELET VOLUME 12.4 fL (9.2-13.0); MONOCYTES 21.3 %; NEUTROPHILS 39.1 %; NEUTROPHILS ABSOLUTE 2.02 10/3/uL (2.02-8.40); PLATELET COUNT 86 10/3/uL (150-400); RBC DISTRIBUTION WIDTH 13.5 % (12.0-16.0); RED CELL COUNT 3.54 10/6/uL (4.0-5.6); WHITE BLOOD CELLS 5.2 10/3/uL (4.5-10.5)
[2017-01-22 01:57] LABS: IMMATURE GRANULOCYTES ABSOLUTE 0.01 10/3/uL (0.0-0.11); MANUAL DIFF NO %
[2017-01-22 02:06] LABS: INTERNATIONAL NORMAL RATI 1.2 UNITS (-); PROTIME (NOT ORD) 14.8 SEC (12.0-14.5)
[2017-01-22 02:33] LABS: EOSINOPHILS 6 %; EOSINOPHILS ABSOLUTE (CALC) 0.31 10/3/uL (0.0-0.53); ER DIFF TAT 0 Hrs 41 Mins; LYMPHOCYTES 35 %; LYMPHOCYTES ABSOLUTE (CALC) 1.82 10/3/uL (0.67-4.30); METAMYELOCYTES 2 %; MONOCYTES 15 %; MONOCYTES ABSOLUTE (CALC) 0.78 10/3/uL (0.21-1.20); NEUTROPHILS ABSOLUTE (CALC) 2.18 10/3/uL (2.02-8.40); SEGMENTED NEUTROPHIL (0) 42 %; TOTAL NUCLEATED CELLS 100
[2017-01-22 02:34] LABS: PLATELET ESTIMATE DEC (ADEQUATE); RBC MORPHOLOGY NORM (NORMAL)
[2017-01-22] MEDS ORDERED: ACET500CAP PO (07:14)
[2017-01-22] MEDS ORDERED: ASAB PO (07:14)
[2017-01-22] MEDS ORDERED: TUMSROLL PO ×2 (07:15)
[2017-01-22] MEDS ORDERED: KLONO5 PO (07:16)
[2017-01-22] MEDS ORDERED: FLONASE NAS (07:17)
[2017-01-22] MEDS ORDERED: NORCO1 TAB PO (07:17)
[2017-01-22] MEDS ORDERED: KLONOPIN WAF0.25 MG PO (07:17)
[2017-01-22] MEDS ORDERED: IMDUR60 PO (07:18)
[2017-01-22] MEDS ORDERED: LOP25 PO (07:19)
[2017-01-22] MEDS ORDERED: KEPPRA500 PO (07:19)
[2017-01-22] MEDS ORDERED: NITROSTAT0.4 MG SL (07:20)
[2017-01-22] MEDS ORDERED: PROTONIX PO (07:20)
[2017-01-22] MEDS ORDERED: MEXITIL 150 MG150 MG PO (07:20)
[2017-01-22] MEDS ORDERED: RENVELA800 MG PO (07:21)
[2017-01-23 07:01] LABS: BUN (BLOOD UREA NITROGEN) 60 MG/DL (6-23); CALCIUM, SERUM 8.9 MG/DL (8.5-10.4); CHLORIDE, SERUM 99 MMOL/L (96-112); CO2 (CARBON DIOXIDE) 27 MMOL/L (24-34); GFR AFRICAN AMERICAN 5 ML/MIN (>=60); GFR NON AFRICAN AMERICAN 4 ML/MIN (>=60); GLUCOSE, SERUM 81 MG/DL (60-99); POTASSIUM, SERUM 5.1 MMOL/L (3.5-5.3); SODIUM, SERUM 138 MMOL/L (135-148)
[2017-01-23 14:45] LABS: BASOPHILS 0.2 %; BASOPHILS ABSOLUTE 0.01 10/3/uL (0.0-0.16); EOSINOPHILS 3.7 %; EOSINOPHILS ABSOLUTE 0.22 10/3/uL (0.0-0.53); HEMOGLOBIN 10.1 g/dL (12.0-16.0); IMMATURE GRANULOCYTES 0.2 %; IMMATURE GRANULOCYTES ABSOLUTE 0.01 10/3/uL (0.0-0.11); LYMPHOCYTES 36.6 %; LYMPHOCYTES ABSOLUTE 2.18 10/3/uL (0.67-4.30); MEAN CORPUS HGB CONC 32.6 g/dL (32.0-36.0); MEAN CORPUSCULAR HEMOGLOB 32.3 pg (26.0-34.0); MEAN PLATELET VOLUME 12.3 fL (9.2-13.0); MONOCYTES 7.9 %; MONOCYTES ABSOLUTE 0.47 10/3/uL (0.21-1.20); NEUTROPHILS 51.4 %; NEUTROPHILS ABSOLUTE 3.06 10/3/uL (2.02-8.40); PLATELET COUNT 81 10/3/uL (150-400); RBC DISTRIBUTION WIDTH 13.6 % (12.0-16.0); RED CELL COUNT 3.13 10/6/uL (4.0-5.6)
[2017-01-23 14:50] LABS: MANUAL DIFF NO %
[2017-03-31] MEDS ORDERED: MEXITIL 150 MG150 MG PO (18:56)
[2017-03-31] MEDS ORDERED: LOP25 PO (18:56)
[2017-03-31] MEDS ORDERED: KLONOPIN WAF0.25 MG PO (18:57)
[2017-03-31] MEDS ORDERED: PERCOCET 7.5/321 TAB PO (18:57)
[2017-03-31] MEDS ORDERED: ASAB PO (18:57)
[2017-03-31] MEDS ORDERED: KLONO5 PO (18:57)
[2017-03-31] MEDS ORDERED: KEPPRA250 PO (18:57)
[2017-03-31] MEDS ORDERED: AMIT10 PO (18:58)
[2017-03-31] MEDS ORDERED: PROTONIX PO (18:58)
[2017-03-31] MEDS ORDERED: ACET500CAP PO (18:58)
[2017-03-31] MEDS ORDERED: TRAVATAN Z 0.004% OPH (18:59)
[2017-03-31] MEDS ORDERED: SEVE800T PO (18:59)
[2017-04-01] MEDS ORDERED: NITROQUICK0.4 MG SL (11:33)
[2017-04-01] MEDS ORDERED: NORV5 PO (11:41)
[2017-04-01] MEDS ORDERED: PLAVIX PO (11:41)
[2017-04-01] MEDS ORDERED: IMDUR60 PO (11:48)
[2017-04-01] MEDS ORDERED: CLARIT10 PO (11:49)
[2017-04-01] MEDS ORDERED: FLONASE NAS (11:49)
[2017-04-01] MEDS ORDERED: NEPHRO PO (11:50)
[2017-04-01] MEDS ORDERED: PRAVACHOL40 MG PO (11:51)
== END 2017-01-24 12:10 | disposition home or self-care (01) ==
LOC: ER 05:09 → ER/OF 06:30 → 2SO 07:29
PROVIDERS: Internal Medicine Nephrology; Nurse Practitioner Acute Care; Surgery
PROC: 037 Upper Arteries, Dilation (ICD-10-PCS; principal; 2017-01-22)
DX: T82.858A Stenosis of other vascular prosthetic devices, implants and grafts, initial encounter (principal); I13.2 Hypertensive heart and chronic kidney disease with heart failure and with stage 5 chronic kidney disease, or end stage renal disease; E11.22 Type 2 diabetes mellitus with diabetic chronic kidney disease; N18.6 End stage renal disease; I50.22 Chronic systolic (congestive) heart failure; I47.2 Ventricular tachycardia; I25.5 Ischemic cardiomyopathy; I25.10 Atherosclerotic heart disease of native coronary artery without angina pectoris; Z86.73 Personal history of transient ischemic attack (TIA), and cerebral infarction without residual deficits; Z90.710 Acquired absence of both cervix and uterus; Z88.2 Allergy status to sulfonamides; Z88.1 Allergy status to other antibiotic agents; Z88.5 Allergy status to narcotic agent
CPT/HCPCS: 36902; 80048; 82962; 85025; 85610; 85730; 96374; 96376; 99285; A9270-GY; C1725; C1769; C1894; G0257; G0378; J2370; J2405; J3010; P9047; Q9967